=== PATIENT | male | born 1990 | race Caucasian/White ===

== ENCOUNTER 2016-11-03 19:25 | Emergency (ER) | payer BC ==
[2016-11-03 19:45] VITALS: BP 157/81; PULSE 99; RESP 16; TEMP 98.4; O2SAT 99
[2016-11-03] MEDS ORDERED: NS 1,000 ML IV ONE (19:52)
[2016-11-03] MEDS ORDERED: ONDANSETRON 4 MG/2 ML VIAL IVP ONE (19:52)
--- NOTE | 2016-11-03 19:54 | UCPHY ---
H & P Patient Type: New Chief Complaint Nursing Narrative: intermittent RLQ abd pain x 2 days with nausea. denies fevers. denies vomiting/diarrhea. pain worse after eating. Time Seen by Provider: 11/03/16 19:38 HPI/ROS: CHIEF COMPLAINT: Abdominal pain HISTORY OF PRESENT ILLNESS: Patient is a 25-year-old man who comes to the emergency department complaining of right lower quadrant abdominal pain and nausea. Both the symptoms have been intermittent since yesterday evening. They seem to last for about 20-25 minutes at a time and then resolve. He has not had a fever. No flank pain. No dysuria, no discharge. No testicular pain, no hernia. No history of abdominal surgery. No significant past medical history. REVIEW OF SYSTEMS: Constitutional: denies: chills, fever, recent illness, recent injury EENTM: denies: blurred vision, double vision, nose congestion Respiratory: denies: cough, shortness of breath Cardiac: denies: chest pain, irregular heart rate, lightheadedness, palpitations Gastrointestinal/Abdominal: See HPI Genitourinary: denies: dysuria, frequency, hematuria, pain Musculoskeletal: denies: joint pain, muscle pain Skin: denies: lesions, rash, jaundice, bruising Neurological: denies: headache, numbness, paresthesia, tingling, dizziness, weakness Hematologic/Lymphatic: denies: blood clots, easy bleeding, easy bruising Immunologic/allergic: denies: HIV/AIDS, transplant EXAM: GENERAL: Well-appearing, well-nourished and in no acute distress. HEAD: Atraumatic, normocephalic. EYES: Pupils equal round and reactive to light, extraocular movements intact, sclera anicteric, conjunctiva are normal. ENT: TMs normal, nares patent, oropharynx clear without exudates. Moist mucous membranes. NECK: Normal range of motion, supple without lymphadenopathy or JVD. LUNGS: Breath sounds clear to auscultation bilaterally and equal. No wheezes rales or rhonchi. HEART: Regular rate and rhythm without murmurs, rubs or gallops. ABDOMEN: Soft, nontender, normoactive bowel sounds. No guarding, no rebound. No masses appreciated. BACK: No CVA tenderness, no spinal tenderness, step-offs or deformities EXTREMITIES: Normal range of motion, no pitting or edema. No clubbing or cyanosis. NEUROLOGICAL: Cranial nerves II through XII grossly intact. Normal speech, normal gait. 5/5 strength, normal movement in all extremities, normal sensation PSYCH: Normal mood, normal affect. SKIN: Warm, dry, normal turgor, no visible rashes or lesions. Source: Patient Exam Limitations: No limitations - Personal History Current Tetanus Diphtheria and Acellular Pertussis (TDAP): Unsure - Medical/Surgical History Hx Asthma: No Hx Chronic Respiratory Disease: No Hx Diabetes: No Hx Cardiac Disease: No Hx Renal Disease: No Hx Cirrhosis: No Hx Alcoholism: No Hx HIV/AIDS: No Hx Splenectomy or Spleen Trauma: No Other PMH: none - Family History Significant Family History: No pertinent family hx - Social History Smoking Status: Never smoked Alcohol Use: Sober Drug Use: None Constitutional: Initial Vital Signs Temperature (C) 36.9 C 11/03/16 19:42 Heart Rate 99 11/03/16 19:42 Respiratory Rate 16 11/03/16 19:42 Blood Pressure 157/81 H 11/03/16 19:42 O2 Sat (%) 99 11/03/16 19:42 O2 Delivery Mode Room Air Allergies/Adverse Reactions: No Known Allergies Allergy (Unverified 11/03/16 19:38) Home Medications: Medication Instructions Recorded Finasteride [Proscar 5 MG (*)] 11/03/16 Ondansetron Odt [Zofran Odt 4 mg 4 mg PO Q4 PRN #20 tab 11/03/16 (RX)] Wellbutrin 100mg (*) 11/03/16 Medical Decision Making - Diagnostics Imaging: Results: CT scan of the abdomen and pelvis was obtained. The results of the study are negative. The study was read by Dr. Gage Garcia. I viewed the images myself on the PACS system. ED Course/Re-evaluation: 9:25 p.m. the patient feels completely asymptomatic. His abdominal exam remains benign. We discussed his CT and lab results which are reassuring. He is eager to go home and declines any further workup or testing. I will prescribe him Zofran. He is happy with this plan. Additional verbal discharge instructions given. Differential Diagnosis: Partial list of the Differential diagnosis considered include but were not limited to; appendicitis, gastroenteritis, food poisoning, hernia and although unlikely based on the history and physical exam, I also considered torsion, stone, urinary tract infection. I discussed these differential diagnoses and the plan with the patient as well as the usual and expected course. The patient understands that the diagnosis is provisional and that in medicine we are not always correct and that further workup is often warranted. Usual and customary warnings were given. All of the patient's questions were answered. The patient was instructed to return to the emergency department should the symptoms at all worsen or return, otherwise to followup with the physician as we discussed. - Data Points Laboratory Results: Laboratory Results 11/03/16 20:10 11/03/16 20:10 11/03/16 11/03/16 20:17 20:10 WBC 7.16 10^3/uL (3.80-9.50) RBC 5.69 10^6/uL (4.40-6.38) Hgb 17.1 g/dL (13.7-17.5) Hct 50.8 % (40.0-51.0) MCV 89.3 fL (81.5-99.8) MCH 30.1 pg (27.9-34.1) MCHC 33.7 g/dL (32.4-36.7) RDW 13.0 % (11.5-15.2) Plt Count 221 10^3/uL (150-400) MPV 10.4 fL (8.7-11.7) Neut % (Auto) 63.6 % (39.3-74.2) Lymph % (Auto) 23.3 % (15.0-45.0) [place] % (Auto) 9.9 % (4.5-13.0) Eos % (Auto) 1.8 % (0.6-7.6) Baso % (Auto) 1.0 % (0.3-1.7) Nucleat RBC Rel Count 0.0 % (0.0-0.2) Absolute Neuts (auto) 4.55 10^3/uL (1.70-6.50) Absolute Lymphs (auto) 1.67 10^3/uL (1.00-3.00) Absolute Monos (auto) 0.71 10^3/uL (0.30-0.80) Absolute Eos (auto) 0.13 10^3/uL (0.03-0.40) Absolute Basos (auto) 0.07 10^3/uL (0.02-0.10) Absolute Nucleated RBC 0.00 10^3/uL (0-0.01) Immature Gran % 0.4 % (0.0-1.1) Immature Gran # 0.03 10^3/uL (0.00-0.10) Sodium 142 mEq/L (134-144) Potassium 4.4 mEq/L (3.5-5.2) Chloride 102 mEq/L (97-110) Carbon Dioxide 29 mEq/l (22-31) Anion Gap 11 mEq/L (8-16) BUN 13 mg/dL (7-23) Creatinine 1.1 mg/dL (0.7-1.3) Estimated GFR > 60 Glucose 86 mg/dL (70-100) Calcium 10.1 mg/dL (8.5-10.4) Total Bilirubin 0.9 mg/dL (0.1-1.4) Conjugated Bilirubin 0.4 mg/dL (0.0-0.5) Unconjugated Bilirubin 0.5 mg/dL (0.0-1.1) AST 27 IU/L (17-59) ALT 39 IU/L (21-72) Alkaline Phosphatase 50 IU/L (38-126) Total Protein 7.7 g/dL (6.3-8.2) Albumin 4.4 g/dL (3.5-5.0) Lipase 65.0 IU/L (23-300) Urine Color YELLOW Urine Appearance CLEAR Urine pH 8.0 H (5.0-7.5) Ur Specific Hurt 1.015 (1.002-1.030) Urine Protein NEGATIVE (NEGATIVE) Urine Ketones NEGATIVE (NEGATIVE) Urine Blood NEGATIVE (NEGATIVE) Urine Nitrate NEGATIVE (NEGATIVE) Urine Bilirubin NEGATIVE (NEGATIVE) Urine Urobilinogen 0.2 EU (0.2-1.0) Ur Leukocyte Esterase NEGATIVE (NEGATIVE) Ur Culture Indicated? NOT INDICATED (NI) Urine Glucose NEGATIVE (NEGATIVE) Medications Given: Discontinued Medications Sodium Chloride (Ns) 1,000 mls @ 0 mls/hr IV ONCE ONE PRN Reason: Wide Open Stop: 11/03/16 19:53 Last Admin: 11/03/16 20:12 Dose: 1,000 mls Ondansetron HCl (Zofran) 4 mg IVP EDNOW ONE Stop: 11/03/16 19:53 Last Admin: 11/03/16 20:13 Dose: 4 mg Ondansetron HCl (Zofran Odt 4 Mg Prepack#2) 1 btl TAKEHOME EDNOW ONE Stop: 11/03/16 21:28 Last Admin: 11/03/16 21:34 Dose: Not Given Departure - Departure Disposition: Home, Routine, Self-Care Clinical Impression: Abdominal pain Qualifiers: Abdominal location: generalized Qualifier Code: (R10.84) Generalized abdominal pain Condition: Fair Instructions: Abdominal Pain (ED), Ondansetron (By mouth) Referrals: OUT OF STATE,. [Primary Care Provider] - As per Instructions Megan William MD [Medical Doctor] - As per Instructions Prescriptions: Ondansetron Odt [Zofran Odt 4 mg (RX)] 4 mg PO Q4 PRN #20 tab PRN Reason: Nausea & Vomiting - PQRS PQRS Measurement: Not applicable
[2016-11-03] MEDS ORDERED: IOPAMIDOL (ISOVUE 370) 100 ML BTL IV ONE (20:07)
[2016-11-03 20:19] LABS: % IMMATURE GRANULYOCYTES 0.4 % (0.0-1.1); ABSOLUTE IMMATURE GRANULOCYTES 0.03 10^3/uL (0.00-0.10); ADD DIFF? NO; ADD MORPH? NO; ADD SCAN? NO; ATYPICAL LYMPHOCYTE FLAG 10 (0-99); FRAGMENT RBC FLAG 0 (0-99); HEMATOCRIT 50.8 % (40.0-51.0); HEMOGLOBIN 17.1 g/dL (13.7-17.5); LEFT SHIFT FLG 0 (0-99); LIPEMIA HEMOLYSIS FLAG 80 (0-99); MEAN CELL HEMOGLOBIN 30.1 pg (27.9-34.1); MEAN CELL HEMOGLOBIN CONCENTR. 33.7 g/dL (32.4-36.7); MEAN CELL VOLUME 89.3 fL (81.5-99.8); MEAN PLATELET VOLUME 10.4 fL (8.7-11.7); PLATELET CLUMPS FLAG 0 (0-99); PLATELET COUNT 221 10^3/uL (150-400); RED BLOOD CELL COUNT 5.69 10^6/uL (4.40-6.38)
[2016-11-03 20:32] LABS: COLOR YELLOW; LEUKOCYTE ESTERASE,URINE NEGATIVE (NEGATIVE); NITRITE,URINE NEGATIVE (NEGATIVE)
[2016-11-03 20:34] LABS: ALANINE AMINOTRANSFERASE 39 IU/L (21-72); ALBUMIN 4.4 g/dL (3.5-5.0); ALKALINE PHOSPHATASE 50 IU/L (38-126); ANION GAP 11 mEq/L (8-16); ASPARTATE AMINOTRANSFERASE 27 IU/L (17-59); BILIRUBIN,TOTAL 0.9 mg/dL (0.1-1.4); BILIRUBIN-CONJUGATED 0.4 mg/dL (0.0-0.5); BILIRUBIN-UNCONJUGATED 0.5 mg/dL (0.0-1.1); CALCIUM 10.1 mg/dL (8.5-10.4); CARBON DIOXIDE 29 mEq/l (22-31); CHLORIDE 102 mEq/L (97-110); CREATININE 1.1 mg/dL (0.7-1.3); GLOMERULAR FILTRATION RATE > 60; GLUCOSE 86 mg/dL (70-100); POTASSIUM 4.4 mEq/L (3.5-5.2); SODIUM 142 mEq/L (134-144); TOTAL PROTEIN 7.7 g/dL (6.3-8.2)
--- NOTE | 2016-11-03 21:18 | CT ---
CT Scan of the Abdomen and Pelvis (With Contrast) Clinical Indications: Abdominal pain. Technique: 90 mL of Isovue-370 were given intravenously by machine power injection. Multidetector h elical CT imaging was performed from the diaphragm to the symphysis pubis. Dose reduction techniques were utilized. Findings: Abdomen: The lung bases are clear, and there is no significant pleural fluid. The liver is normal. The biliary ducts and gallbladder are unremarkable. The pancreas and spleen are normal. The adrena l glands and kidneys are normal. No adenopathy and no masses are found. No aneurysm of the abdomina l aorta. Pelvis: The urinary bladder is unremarkable. No free fluid in the pelvis. No masses are identified. Bowel loops are normal. The appendix is visualized and normal. Impression: Normal CT of the abdomen and pelvis with contrast. Critical results relayed by Dr. Garcia to Dr. Mcadams on November 03, 2016 at 2110 hours.
[2016-11-03] MEDS ORDERED: ONDANSETRON 4MG PREPACK#2 BTL TAKEHOME ONE (21:27)
[2016-11-03] MEDS ORDERED: ONDANSETRON DISINTEGRATING 4 MG TAB ONE (21:32)
== END 2016-11-03 21:39 | disposition home or self-care (01) ==
LOC: CED 19:25
DX: R10.31 Right lower quadrant pain (principal); R11.0 Nausea
CPT/HCPCS: 74177-PO; 80048-PO; 80076-PO; 81003-PO; 83690-PO; 85025-PO; 96360-PO; 96361-PO; 96374-PO; 99205-PO; G0463-PO; J2405; Q9967